=== PATIENT | male | born 1950 | race Caucasian/White ===

== ENCOUNTER 2017-03-26 03:47 | Emergency (ER) | payer OTHER ==
[2017-03-26 03:53] VITALS: BP 137/73; PULSE 65; RESP 16; O2SAT 100
--- NOTE | 2017-03-26 04:01 | ED.REPORT ---
HPI-Hand Prob/Inj Date of Service Mar 26, 2017 ED Provider: Arsalan Ortiz MD Pt is an otherwise healthy 66 year old male who presents to the ED for a laceration on his right 5th finger onset prior to arrival. He c/o associated right 5th finger pain. He denies any other symptoms. Pt reports that he accidentally cut his finger on glass. Per pt, his last TDAP was in 2009. Nursing Notes Stated Complaint: RIGHT HAND LACERATION Chief Complaint: Laceration Nursing Notes Reviewed: Yes Allergies: Coded Allergies: No Known Allergies (Unverified , 03/26/17) General Time Seen by Provider: 04:00 Chief Complaint Finger injury right Hx Obtained From: Patient Arrived By: Walk-in Onset Occurred: Just prior to arrival Symptom Duration: Since onset Caused by: Accidental Quality: Painful Severity: Current: Moderate Severity: Maximum: Moderate Immunizations: Tetanus up to date (2009) Recent Healthcare: No recent doctor visit, No recent hospitalization Similar Sx Previous: No Past Medical History Past Medical History Denies - healthy Past Surgical History Denies Smoking History Unknown if Ever Smoker Social History Formerly Alcohol Use: Denies alcohol use Drug Use: Denies drug use Occupation [employer] Ambulatory Status Independent Review of Systems + right 5th finger pain + right 5th finger laceration Constitutional: Denies: Fever Complete sys rev & neg: except as marked. Respiratory: Denies: Non-productive cough Physical Exam Initial Vital Signs Vital Signs (First) Date Time Temp Pulse Resp B/P Pulse Ox O2 Delivery O2 Flow Rate FiO2 03/26/17 03:53 37.1 65 16 137/73 100 Room Air Initial VS: Reviewed, Vital signs normal Head / Eyes: Atraumatic, Normocephalic Neck: Supple, Full range of motion Respiratory: Breath sounds normal, No respiratory distress Cardiovascular: Regular rate & rhythm, Heart sounds normal, Intact distal pulses Extremities: Vascular intact, Neuro intact Skin: Warm, Dry, No cyanosis Neurologic: Alert, Oriented, Nonfocal Psychiatric: Mood/affect normal, Behavior normal Wrist / Hand: Neurologic intact, Vascular intact 1.6 cm laceration of right 5th finger without involvement of tendon. General/Constitutional: Awake, Alert Procedures Laceration Management Time: 04:30 Procedure Performed by: ED physician Consent / Setup / Site Prep: Consent from patient, Time-out performed, Hand hygiene observed, Stand sterile technique Location of Wound: Right 5th finger Wound Length: 1 cm (.6) Local Anesthesia: Lidocaine w epi 1% Wound Preparation: Shurclens Debridement: None Irrigation: Copious (60 cc saline) Repair Skin: ___ O (5), Nylon # Sutures - Skin: 4 Closure Layers: 1 Suture Technique: Simple Post-Procedure / Complications: Antibiotic oint applied, Dressing applied, No complications, Condition improved, Tolerated procedure well, Patient stable Re-Eval/Medical Decision Med Decision/Clinical Course Minor finger laceration with no evidence of foreign body or injury to vital structures. Source of Hx: Old records Re-Evaluation/Progress : Time of Eval: 04:30 Re-Evaluation/Progress Note: Pt rechecked. Repaired pt's laceration with his consent. Informed pt of plan for discharge. Pt understands and agrees with plan for discharge. F/U instructions and RTER warnings given. All questions addressed. Counseled Regarding: Diagnosis, Need for follow-up, When/why to return to ED Discharge & Departure Primary Impression: Laceration Disposition: Home Discharge Condition All VS Reviewed: Yes Condition: Stable Patient Instructions: Finger Laceration (ED) Additional Instructions: Change the dressing with bacitracin and Band-Aid daily or when it gets wet. Okay to wash it, but do not soak it (no hot tub, no dishwashing, and no scuba diving). Stitches out in 7-10 days. You may return here for that. Ears There Is Any Evidence of Infection. Referrals: Garrison Galo MD Attestation Portions of this note were transcribed by Elena Brandon. I, Dr. Ortiz personally performed the history, physical exam and medical decision-making; I reviewed and confirmed the accuracy of the information in the transcribed note. Signed by: Dannielle Hussein, 03/26/17. copies to: Garrison Galo MD, Arsalan Flanagan MD Mar 26, 2017 04:01 Elena Saxena Mar 26, 2017 04:43
[2017-03-26] MEDS ORDERED: Lidocaine 1%-Epi 1:100,000 20 mL Inj ONE (04:20)
[2017-03-26 05:00] VITALS: BP 128/68; PULSE 68; RESP 18; O2SAT 100
== END 2017-03-26 05:03 | disposition home or self-care (01) ==
LOC: SED 03:47
DX: S61.216A Laceration without foreign body of right little finger without damage to nail, initial encounter (principal); W25.XXXA Contact with sharp glass, initial encounter; Y93.89 Activity, other specified; Y92.89 Other specified places as the place of occurrence of the external cause; Y99.8 Other external cause status

== ENCOUNTER 2017-04-04 07:53 | Emergency (ER) | payer OTHER ==
[2017-04-04 07:56] VITALS: BP 134/74; PULSE 71; RESP 16; O2SAT 100
== END 2017-04-04 08:04 | disposition home or self-care (01) ==
LOC: SED 07:53
DX: Z48.02 Encounter for removal of sutures (principal)